=== PATIENT | male | born 1980 | race Two or more races ===

== ENCOUNTER 2017-03-12 18:26 | Emergency (ER) | payer OTHER ==
[~2017-03-12] VITALS: Ht 160 cm; Wt 85.5 kg
[2017-03-12 18:29] VITALS: BP 157/91
[2017-03-12 20:02] LABS: ASPARTATE AMINO TRANSFERASE 20 U/L (15-37); BLOOD UREA NITROGEN 19 mg/dL (7-18)
[2017-03-12 20:09] LABS: IS PT STATUS REG ER OR PRE ER? YES
== END 2017-03-12 21:09 | disposition home or self-care (01) ==
LOC: ED 19:52
DX: R07.89 Other chest pain (principal); F41.1 Generalized anxiety disorder; F12.10 Cannabis abuse, uncomplicated
CPT/HCPCS: 36415; 74022; 80053; 83690; 84484; 85025; 93005

== ENCOUNTER 2017-10-23 00:09 | Emergency (ER) | payer OTHER ==
[~2017-10-23] VITALS: Ht 160 cm; Wt 81.4 kg
[2017-10-23 00:11] VITALS: BP 157/99
[2017-10-23 00:37] LABS: HEMATOCRIT 43.8 % (39.2-51.8); HEMOGLOBIN 14.8 g/dL (13.7-18.0)
[2017-10-23 00:49] LABS: ASPARTATE AMINO TRANSFERASE 18 U/L (15-37); BLOOD UREA NITROGEN 14 mg/dL (7-18)
== END 2017-10-23 01:38 ==
LOC: ED 01:04
DX: K62.5 Hemorrhage of anus and rectum (principal); K64.8 Other hemorrhoids; K60.0 Acute anal fissure
CPT/HCPCS: 36415; 80053; 81003; 83690; 85025; 99284